=== PATIENT | male | born 1975 ===

== ENCOUNTER 2020-01-23 10:00 | Outpatient (REF) | payer MEDICAID, SELFPAY ==
--- NOTE | 2020-01-23 | US_ITS ---
EXAMINATION: US RENAL AND RENAL DOPPLER EXAM CLINICAL INFORMATION: Essential hypertension COMPARISON: None TECHNIQUE: Grayscale and color imaging of the kidneys. Grayscale color and Doppler imaging of the renal arteries and aorta. FINDINGS: The kidneys are normal in contour and symmetric in size with the right kidney measuring 13.9 x 5.8 x 6.4 cm and the left 14.1 x 6.2 x 5.8 cm in sagittal, AP and transverse dimension. Renal cortical thickness and echogenicity is normal. There is a small 3 x 4 mm stone in the midpole of the right kidney. No left renal stone is seen. No hydronephrosis or mass is seen. There is no perinephric collection. Visualized upper abdominal aorta is normal in caliber. Peak systolic velocity is normal measuring 92 cm/s. Right renal artery peak systolic velocity is 120 cm/s proximally, 180 cm/s in the midportion and 105 cm/s distally. Right renal artery to aorta ratio is normal measuring 2. Indirect evaluation of the interlobar renal arteries in the kidney demonstrate normal resistive indices measuring 0.6. The right renal vein is patent. Left renal artery peak systolic velocity measures 58 cm/s proximally, 142 cm/s in the midportion and 132 cm/s distally. Left renal artery to aorta ratio is normal measuring 1.5. Indirect evaluation of the left interlobar renal artery resistive indices in the kidney is normal measuring 0.6. The left renal vein is patent. IMPRESSION: 1. Small right renal stone. 2. No evidence of renal artery stenosis.
== END 2020-01-23 10:01 | disposition home or self-care (01) ==
LOC: HO.US 10:00
PROVIDERS: Visit Provider Nurse Practitioner Primary Care
DX: I10 Essential (primary) hypertension (principal)
CPT/HCPCS: 93975

== ENCOUNTER → 2020-04-04 08:01 | Outpatient (REF) | payer MEDICAID, SELFPAY ==
--- NOTE | 2020-04-04 08:30 | CA_ITS ---
Transthoracic Echocardiogram Patient (Last, First, Middle): Kaden DumontJeffery, Gender: Male Date of : 1975 Age: 44 Procedure Date: 04/04/2020 Procedure Type: Transthoracic Echocardiogram Location: OP Height: 187.96 cm Weight: 136.08 kg BSA: 2.58 m2 Heart Rate: bpm BP: 140 / 80 mmHg Ice Bag Assembler: CARMELO Referring MD: Vernell Jacob NP Waiter/Waitress Informal: Yvon Barbosa MD Symptoms: I10 HTN, R01.1 CARDIAC MURMUR, R06.02 SOB Study Quality: Fair/Contrast ECG Rhythm: Sinus Conclusions: - Normal study Findings Procedure Information Contrast agent, definity, is being given per protocol without apparent complications. Left Ventricle Normal left ventricular size, thickness, and systolic function. The visually estimated ejection fraction is between 60-65%. Diastolic function is normal for age. Right Ventricle Normal right ventricular cavity size and systolic function. Atria Both atria are normal in size. There is no evidence of interatrial shunt. Aortic Valve The aortic valve structure and function is likely normal. There is no aortic valve stenosis. There is no aortic valve regurgitation. Mitral Valve Normal mitral valve structure and function. There is trace mitral valve regurgitation. There is no mitral valve stenosis. Pulmonic Valve The pulmonic valve is likely normal. Tricuspid Valve Normal tricuspid valve structure. There is trace tricuspid valve regurgitation. The right ventricular systolic pressure is normal. The right ventricular systolic pressure is 17 mmHg. Normal right atrial pressure. There is no evidence of pulmonary hypertension. Great Vessels All visible segments of the aorta are normal in size. The pulmonary artery was not well visualized. Venous The inferior vena cava is normal in size and collapses greater than 50% with inspiration. Pericardium/Pleural There is no evidence of pericardial effusion. Prior Study Comparison No prior study available for comparison. Measurements 2D Linear Measurements IVSd: 1.12 0.6-0.9/0.6-1.0 cm LVIDd: 5.19 3.9-5.3/4.2-5.9 cm LVIDd Index: 2.01 2.4-3.2/2.2-3.1 cm/m2 LVIDs: 3.17 2.0-3.6 cm LVPWd: 1.12 0.7-1.1 cm Ao Root: 3.40 2.1-3.5 cm LA Diam: 3.70 2.7-3.8/3.0-4.0 cm LAIDs Index: 1.43 1.5-2.3 cm/m2 LV Mass: 281.19 67-162/88-224 g LV Mass Index: 108.99 43-95/49-115 g/m2 LVOT Diam: 2.30 3.0+(-)1.3 cm 2D Systolic Function EF 4C: 59.40 >55% EF 2C: 56.60 >55% EF BiP: 58.60 >55% Mitral Valve MV Pk E: 1.10 MV PK A: 0.69 MV Decel Time: 215.00 E/A: 1.60 E'Lateral: 10.80 E'Medial: 8.22 E/E' Med: 13.40 E/E' Lat: 10.20 PHT: 63.00 MVA PHT: 3.49 Decel Rooks: 5.10 Aortic Valve AoV Pk Chadwick: 1.55 AoV Mn Chadwick: 1.10 AoV VTI: 0.31 AoV Pk Grad: 10.00 Aov Mn Grad: 5.00 ABDULLAHI Cont.VTI: 3.49 LVOT LVOT Pk Chadwick: 1.32 LVOT Mn Chadwick: 0.85 LVOT VTI: 0.26 LVOT Pk Grad: 7.00 LVOT Mn Grad: 3.00 LVOT Diam: 2.30 LVOT Area: 4.15 Diastolic Function MV Pk E: 1.10 MV Pk A: 0.69 E/A: 1.60 E'Medial: 8.22 E/E' Med: 13.40 E' Laterial: 10.80 E/E' Lat: 10.20 Tricuspid Valve TR Pk Chadwick: 1.87 TR Pk Grad: 14.00 RA Press: 3.00 RVSP: 17.00 Great Vessels Aorta Ao Root-2D: 3.40 2.0-3.7 cm Ao Asc: 3.10 2.1-3.4 cm Ao Arch: 2.70 Updated in Other Vendor System with Status of Final Yvon Barbosa MD electronically signed on 04/05/2020 2:26:06 PM with status of Final
--- NOTE | 2020-04-04 09:30 | CA_ITS ---
Acquisition Time: 2020-04-04 09:27:45 Total Exercise Time: 00:08:24 Test Indications: SOB,HTN Medications: SEE CHART Protocol: BETINA Max HR: 153 BPM 85% of Pred: 178 BPM Max BP: 178/080 mmHG Max Work Load: 10.1 METS Exercise stress test with exercise 8 min 24 sec of Betina protocol, with moderate shortness of breath, no chest discomfort, with one ventricular cuplet near peak exercise, with normotensive response to exercise, without EKG changes meeting criteria for ischemia at peak exercise with downsloping ST lead III, the in recovery with borderline ST depression and downsloping STs Lead III, V5 and V6. His sob gradually improved to normal. Test reviewed with Dr Barbosa Call placed to ordering providers office and recommended stress echo for further evaluation. Referred By: Vernell Jacob Overread By: LISA GARCIA
== END ==
LOC: HO.CARD 08:01
PROVIDERS: PCP Nurse Practitioner Primary Care; Visit Provider Nurse Practitioner Primary Care
DX: I10 Essential (primary) hypertension (principal); R01.1 Cardiac murmur, unspecified; R06.02 Shortness of breath
CPT/HCPCS: 93017; 93306; Q9957

== ENCOUNTER → 2020-06-19 11:07 | Outpatient (REF) | payer MEDICAID, SELFPAY ==
--- NOTE | 2020-06-19 | CA_ITS ---
Acquisition Time: 2020-06-19 11:21:57 Total Exercise Time: 00:08:31 Test Indications: Dyspnea Medications: HCTZ AMLODIPINE LOSARTAN ALBUTEROL Protocol: BETINA Max HR: 151 BPM 84% of Pred: 178 BPM Max BP: 190/098 mmHG Max Work Load: 10.1 METS Exercise stress ECHO using Betina protocol, total of 8 min 31 sec. METS 10.10 and TAPHR up to 84%. EKG without any arrhythmias, no ischemic changes seen during exercise or in recovery. ECHO images taken at rest and immediately after peak exercise. Definity contrast used. Hypertensive response to exercise. Test reviewed with Dr. Barbosa. STRESS ECHO : Technique : Images were obtained at rest and immediately post exercise within 40 seconds. Definity contrast was used to enhance endocardial definition. Images were obtained in multiple views and compared side to side. Findings : At rest images were of adequate quality. LV systolic function is normal with normal wall motion. Post exercise images are of adequate quality. There is excellent augmentation of LV systolic function with no regional wall motion abnormalities. Conclusion ; Stress echo negative for ischemia Referred By: Vernell Jacob Overread By: MENA BARBOSA MD
== END ==
LOC: HO.CARD 11:07
PROVIDERS: Visit Provider Nurse Practitioner Primary Care
DX: R01.1 Cardiac murmur, unspecified (principal); R06.02 Shortness of breath
CPT/HCPCS: 93350; Q9957

== ENCOUNTER 2020-10-08 12:09 | Emergency (ER) | payer MEDICAID, SELFPAY ==
--- NOTE | ~2020-10-08 | XR_ITS ---
EXAMINATION: XR KNEE, RIGHT CLINICAL INFORMATION: Fall. Injury. COMPARISON: None TECHNIQUE: Four views of the right knee. FINDINGS: Bones and soft tissues are normal. No fracture or joint effusion. Alignment is anatomic. Joint spaces are well maintained. No abnormal soft tissue calcification. XR/XR knee RT 3V IMPRESSION: Normal right knee.
[2020-10-08 12:56] VITALS: BP 131/79; PULSE 78; RESP 18; O2SAT 97; BMI 38.5
--- NOTE | 2020-10-08 14:52 | ED.FALL ---
HPI - Fall General Chief Complaint: Fall Stated Complaint: pt fell from work Time Seen by Provider: 10/08/20 13:41 Source: patient Mode of arrival: ambulatory History of Present Illness HPI Narrative: 45-year-old male with a past medical history of hypertension presenting to the ED complaining of right knee pain s/p handlebar of pallet spot remover falling on knee while moving pallets at work [employer]. denies fall to ground, numbness, tingling, weakness, injury to other area Related Data Previous Rx's Medication Instructions Recorded acetaminophen [Tylenol Extra 500 mg PO Q6H PRN #20 tab 10/08/20 Strength] naproxen 500 mg PO BID PRN 10 Days #20 tab 10/08/20 Allergies Allergy/AdvReac Type Severity Reaction Status Date / Time No Known Allergies Allergy Verified 10/08/20 12:56 [No Known Allergies*] Review of Systems Review of Systems: Constitutional: No Fever, No Chills Musculoskeletal: + joint pain, No Myalgias, + Joint Swelling Skin: No Skin Lesions, No rash Neuro: No Weakness, No Numbness, No Paresthesias Yes all other systems are reviewed and are negative [facility] Past Medical History Attestation statement: The following information was validated with the patient. Medical History (Updated 10/08/20 @ 14:53 by GREG Maurice) HTN (hypertension) Social History Social History Advance Directives: No Advance Directives Information Provided: No Physical Exam Vital Signs: Vital Signs: Last Vital Signs Pulse 78 10/08/20 12:56 Resp 18 10/08/20 12:56 BP 131/79 10/08/20 12:56 Pulse Ox 97 10/08/20 12:56 Body Mass Index 38.5 Const: General: cooperative and healthy appearing Orientation/consciousness: patient oriented x3 Limitations: no limitations HENMT: Head: Yes normal to inspection Ears: hearing grossly normal bilaterally General nose exam: Normal external nose present Face and sinus: Yes normal facial exam Eyes: General: appearance normal, both eyes and all related structures EOM: EOMs intact bilaterally Neck: Neck: Yes normal visual inspection Resp: Effort & Inspection: normal respiratory effort Cardio: Rate: regular rate Peripheral pulses: dorsalis pedis present Skin: Rashes: no rashes Wounds: no wounds Neuro: General: patient oriented x3 Extrem: Other: right knee with notable swelling. Tender to palpation. Decreased flexion secondary to pain. Neurovascularly intact distally. Course Course Course Narrative: XR knee RT 3V IMPRESSION: Normal right knee. >> patient placed in Josh wrap and supplied with crutches in the ED MDM - Fall MDM Narrative Medical decision making narrative: 45-year-old male with a past medical history of hypertension presenting to the ED complaining of right knee pain s/p handlebar of pallet spot remover falling on knee while moving pallets at work [employer]. On exam VSS, NAD /well-appearing. Concern for fracture versus ligamental or tendon or meniscal injury. Plan: X-rays Discharge Plan Discharge Clinical Impression: Injury of knee Qualifiers: Encounter type: initial encounter Laterality: right Qualified Code(s): S89.91XA - Unspecified injury of right lower leg, initial encounter Patient Disposition: Home, Self-Care Instructions: Knee Pain (ED) Additional Instructions: your x-rays are unremarkable. Wear Josh wrap at home as needed for comfort /debility. Ice. Elevate, and rest. Naproxen as an anti-inflammatory/ pain medication, take with food. In addition take Tylenol. Follow up with her primary care doctor, as well as Orthopedics as needed. If pain persists or worsens, becomes unbearable, or you develop weakness or numbness return to the ED. You may need an MRI in the future nedra radiograf?as son normales. Use la envoltura Josh en casa seg?n sea necesario para mayor comodidad / debilidad. Hielo. Elevar y descansar. El naproxeno ingrid medicamento antiinflamatorio / analg?sico, t?cartagena con las comidas. Adem?s, tome Tylenol. Eleazar un seguimiento con macias m?dico de atenci?n primaria, as? ingrid con ortopedia seg?n sea necesario. Si el dolor persiste o empeora, se vuelve insoportable o si desarrolla debilidad o entumecimiento, regrese al servicio de urgencias. Es posible que necesite ernst resonancia magn?alisa en el futuro Prescriptions: New acetaminophen [Tylenol Extra Strength] 500 mg tablet 500 mg PO Q6H PRN (Reason: pain or fever) Qty: 20 RF: 0 naproxen 500 mg tablet 500 mg PO BID PRN (Reason: pain) 10 Days Qty: 20 RF: 0 Referrals: Estela Clark PA-C [Physician Practice Lead] - 10 days Stand Alone Forms: Work/School Release Interventions: ED Discharge Assessment Last Done: 10/08/20 15:13 Discharge Date/Time: 10/08/20 15:14 Print Language: Nepali
[2020-10-08] MEDS: Ketorolac Tromethamine 30 MG/ML VIAL IM (14:53)
== END 2020-10-08 15:14 | disposition home or self-care (01) ==
PROVIDERS: Emergency Provider Emergency Medicine Emergency Medical Services; PCP Nurse Practitioner Primary Care
DX: S89.91XA Unspecified injury of right lower leg, initial encounter (principal); W20.8XXA Other cause of strike by thrown, projected or falling object, initial encounter; Y93.89 Activity, other specified; Y92.89 Other specified places as the place of occurrence of the external cause; Y99.0 Civilian activity done for income or pay
CPT/HCPCS: 73562; 99283; J1885

== ENCOUNTER → 2020-11-05 13:58 | Outpatient (BNVA) | payer MEDICAID, SELFPAY | PROVIDERS: PCP Nurse Practitioner Primary Care; Referring Provider Nurse Practitioner Primary Care; Visit Provider Internal Medicine Cardiovascular Disease | DX: I10 Essential (primary) hypertension (principal); R01.1 Cardiac murmur, unspecified; G47.10 Hypersomnia, unspecified; Z79.899 Other long term (current) drug therapy | CPT/HCPCS: 93005; 99202 ==

== ENCOUNTER 2020-11-21 11:01 | Outpatient (REF) | payer MEDICAID, SELFPAY ==
--- NOTE | ~2020-11-21 | US_ITS ---
EXAMINATION: US RETROPERITONEAL LIMITED (RENAL ONLY) ULTRASOUND RENAL DOPPLER CLINICAL INFORMATION: Hypertension. COMPARISON: None TECHNIQUE: Transabdominal ultrasound imaging of kidneys is performed. FINDINGS: RIGHT KIDNEY: 14.6 x 5.7 x 6.2 cm (SAG x AP x TRV). The kidney is normal in size, contour, and echogenicity. Renal cortical thickness is normal. There is an echogenic stone midpole measuring 0.6 x 0.4 x 0.6 cm. There is a prominent anechoic area in the upper pole with tiny calcifications. No additional echogenic stone seen. There is no caliectasis or hydronephrosis. LEFT KIDNEY: 14.3 x 6.3 x 5.0 cm (SAG x AP x TRV). The kidney is normal in size, contour, and echogenicity. Renal cortical thickness is normal. There is a prominent anechoic area in the upper pole with tiny calcification question complex cyst or calcification. No calculi or focal parenchymal lesions. No hydronephrosis. On renal Doppler exam, Right kidney: The proximal right renal artery measures 177 cm/s, mid segment measures to 29 cm/s, distal segment measures 114 cm/s. Average resistive index is less than 0.7 cm. There is no suggestion of renal artery stenosis. The renal vein is patent. Left kidney: The renal artery velocity proximal segment measures 137 cm/s, mid segment measures 205 cm/s, distal segment measures 78.2 cm. Renal aortic ratio measures less than 0.7 cm. There is no suggestion for renal artery stenosis. The renal vein is patent. US/US renal BI IMPRESSION: There is no renal artery stenosis in either side. There is a nonobstructive echogenic stone midpole right kidney. Small anechoic cyst with peripheral calcification upper pole left kidney.
--- NOTE | ~2020-11-21 | US_ITS ---
EXAMINATION: US RETROPERITONEAL LIMITED (RENAL ONLY) ULTRASOUND RENAL DOPPLER CLINICAL INFORMATION: Hypertension. COMPARISON: None TECHNIQUE: Transabdominal ultrasound imaging of kidneys is performed. FINDINGS: RIGHT KIDNEY: 14.6 x 5.7 x 6.2 cm (SAG x AP x TRV). The kidney is normal in size, contour, and echogenicity. Renal cortical thickness is normal. There is an echogenic stone midpole measuring 0.6 x 0.4 x 0.6 cm. There is a prominent anechoic area in the upper pole with tiny calcifications. No additional echogenic stone seen. There is no caliectasis or hydronephrosis. LEFT KIDNEY: 14.3 x 6.3 x 5.0 cm (SAG x AP x TRV). The kidney is normal in size, contour, and echogenicity. Renal cortical thickness is normal. There is a prominent anechoic area in the upper pole with tiny calcification question complex cyst or calcification. No calculi or focal parenchymal lesions. No hydronephrosis. On renal Doppler exam, Right kidney: The proximal right renal artery measures 177 cm/s, mid segment measures to 29 cm/s, distal segment measures 114 cm/s. Average resistive index is less than 0.7 cm. There is no suggestion of renal artery stenosis. The renal vein is patent. Left kidney: The renal artery velocity proximal segment measures 137 cm/s, mid segment measures 205 cm/s, distal segment measures 78.2 cm. Renal aortic ratio measures less than 0.7 cm. There is no suggestion for renal artery stenosis. The renal vein is patent. US/US renal doppler IMPRESSION: There is no renal artery stenosis in either side. There is a nonobstructive echogenic stone midpole right kidney. Small anechoic cyst with peripheral calcification upper pole left kidney.
== END 2020-11-21 11:02 | disposition home or self-care (01) ==
LOC: HO.US 11:01
PROVIDERS: Visit Provider Internal Medicine Cardiovascular Disease
DX: I10 Essential (primary) hypertension (principal)
CPT/HCPCS: 76775; 93975; 95806

== ENCOUNTER → 2020-11-21 16:04 | Outpatient (REF) | payer MEDICAID, SELFPAY | LOC: HO.SL 16:04 | PROVIDERS: PCP Nurse Practitioner Primary Care; Visit Provider Internal Medicine Cardiovascular Disease | DX: G47.10 Hypersomnia, unspecified (principal); I10 Essential (primary) hypertension | CPT/HCPCS: 95806 ==

== ENCOUNTER 2021-01-20 14:46 | Outpatient (REF) | payer MEDICAID, SELFPAY ==
[2021-01-20 15:22] LABS: COVID-19 Test Negative (Negative)
== END 2021-01-20 14:47 | disposition home or self-care (01) ==
LOC: HO.LAB 14:46
PROVIDERS: PCP Nurse Practitioner Primary Care; Visit Provider Internal Medicine
DX: Z20.822 Contact with and (suspected) exposure to COVID-19 (principal)
CPT/HCPCS: 36415; 87635; C9803

== ENCOUNTER 2021-03-24 15:00 | Outpatient (REF) | payer MEDICAID, SELFPAY ==
[2021-03-24 16:00] LABS: COVID-19 Test Negative (Negative); IDNOW Serial# 16C4AD1C
== END 2021-03-24 15:01 | disposition home or self-care (01) ==
LOC: HO.LAB 15:00
PROVIDERS: Visit Provider Internal Medicine
DX: Z20.822 Contact with and (suspected) exposure to COVID-19 (principal)
CPT/HCPCS: 36415; 87635; C9803

== ENCOUNTER 2021-07-29 15:29 | Emergency (ER) | payer MEDICAID, SELFPAY ==
--- NOTE | ~2021-07-29 | XR_ITS ---
EXAMINATION: XR SHOULDER, RIGHT CLINICAL INFORMATION: Pain COMPARISON: None TECHNIQUE: Right shoulder is imaged in 4 views. FINDINGS: There is bulky calcific tendinosis adjacent to the greater tuberosity in region of distal supraspinatus and infraspinatus tendons. There is no fracture or dislocation or destructive process. Glenohumeral joint appears normal. The acromioclavicular alignment is normal. Right lung apex shows no pneumothorax or pleural reaction. XR/XR shoulder RT min 2V IMPRESSION: Bulky calcific tendinosis right rotator cuff.
[2021-07-29 15:40] VITALS: BP 150/106; PULSE 79; RESP 20; TEMP 36.1; O2SAT 97; BMI 37.5
[2021-07-29] MEDS: Ibuprofen 600 MG TABLET PO (17:34)
--- NOTE | 2021-07-29 17:56 | ED.EXTPRO ---
HPI - Extremity Problem General Chief complaint: Extremity Problem Stated complaint: right shoulder pain Time Seen by Provider: 07/29/21 17:55 Source: patient Mode of arrival: ambulatory Limitations: no limitations History of Present Illness HPI Narrative: 46-year-old male presents to the ER with acute onset of right shoulder pain that started yesterday after he was lifting bread trays above his head. He states when he woke up this morning the pain was significantly increased and he was unable to move his shoulder. He states the pain is worse when you touch it and when he tries to lift it up away from the body. He denies any fall or specific injury. He denies any pops or snaps. He has no numbness or tingling in the hand or arm. No elbow or wrist injury. MD Complaint: joint pain Onset (ago): day(s) (1) Pain Consistency: constant Location: right and upper extremity Severity scale (1-10): 8 Quality: aching and sharp Radiation: none Relieving factors: immobilization Exacerbating factors: range of motion and palpation Associated symptoms: denies other symptoms Related Data Home Medications Medication Instructions Recorded Confirmed amlodipine 10 mg tablet 10 mg PO DAILY 11/05/20 11/05/20 Previous Rx's Medication Instructions Recorded acetaminophen 500 mg tablet 500 mg PO Q6H PRN #20 tab 10/08/20 (Tylenol Extra Strength) naproxen 500 mg tablet 500 mg PO BID PRN 10 Days #20 tab 10/08/20 losartan 100 1 tab PO DAILY #60 tab 06/13/21 mg-hydrochlorothiazide 25 mg tablet hydrocodone 5 mg-acetaminophen 325 1 tab PO Q8H PRN #8 tab 07/29/21 mg tablet ibuprofen 800 mg tablet 800 mg PO Q8H PRN #20 tab 07/29/21 Allergies Allergy/AdvReac Type Severity Reaction Status Date / Time No Known Allergies Allergy Verified 10/08/20 12:56 [No Known Allergies*] Review of Systems Review of Systems: Constitutional: No Fever, No Chills Cardiovascular: No Chest Pain, No SOB Gastrointestinal: No Nausea, No Vomiting, No abdominal Pain Musculoskeletal: + joint pain, No Myalgias Skin: No Skin Lesions, No rash Neuro: No Weakness, No Numbness Heme/Lymph: No Bruising, No Lymphadenopathy PMFSH Past Medical History Medical History HTN (hypertension) Uncontrolled hypertension Surgical History Hx of hand surgery Family History Family History Father HTN (hypertension) Mother HTN (hypertension) Social History Social History Patient Tobacco Use Status: Never used Tobacco Advance Directives: No Advance Directives Information Provided: No Physical Exam Vital Signs: Vital Signs: Last Vital Signs Temp 96.9 F 07/29/21 15:40 Pulse 79 07/29/21 15:40 Resp 20 07/29/21 15:40 BP 150/106 H 07/29/21 15:40 Pulse Ox 97 07/29/21 15:40 BMI result Body Mass Index 37.5 Appearance: Alert. Oriented X3. No acute distress. HEENT: normal inspection CVS: Normal heart rate and rhythm. Pulses normal. Respiratory: No respiratory distress. Skin: Skin warm and dry. Normal skin color. Normal skin turgor. No rashes. Extremities: Right shoulder and arm held in adduction. Tenderness along the anterior lateral aspect of the shoulder with pain on passive and active adduction. Unable to abduct past 90 degrees. Normal range of motion of the elbow and wrist. Neurovascularly intact distally. Neuro: Oriented X 3. No motor deficit. No sensory deficit. Course Course Course Narrative: 46-year-old male presents to the ER with nontraumatic right shoulder pain since yesterday. He is tender throughout the anterior lateral and posterior shoulder with limited range of motion, pain with abduction and palpation. X-ray showing bulky calcific tendinitis. Will place an sling for comfort, start him on NSAIDs and pain control. Would benefit from physical therapy, he will follow-up with his PCP. He is stable for discharge home with outpatient follow-up. Work note provided per request Critical Care Time Critical Care Time Critical Care Time: No Discharge Plan Discharge Clinical Impression: Calcific tendonitis of right shoulder Patient Disposition: Home, Self-Care Instructions: Calcific Tendinitis (ED) Additional Instructions: Your x-ray today showed calcific tendonitis. Treatment is rest, ice/heat, anti-inflammatory medications, and physical therapy You can wear the sling as needed for immobilization and support but do not wear it any longer than 48 hours as this can cause a frozen shoulder and decreased mobility. Take the prescribed medications as directed. They were sent to the [facility] on [facility], they are open to 21:00 tonight Follow up with your doctor to facilitate referral to physical therapy Follow-up with orthopedics for evaluation of possible steroid injections into the shoulder. Name and number below Prescriptions: New ibuprofen 800 mg tablet 800 mg PO Q8H PRN (Reason: pain) Qty: 20 0RF hydrocodone-acetaminophen 5-325 mg tablet 1 tab PO Q8H PRN (Reason: severe pain (scale score 7-10)) Qty: 8 0RF No Action losartan-hydrochlorothiazide 100-25 mg tablet 1 tab PO DAILY Qty: 60 0RF Rx Instructions: Must attend 08/04/21 acetaminophen [Tylenol Extra Strength] 500 mg tablet 500 mg PO Q6H PRN (Reason: pain or fever) Qty: 20 0RF naproxen 500 mg tablet 500 mg PO BID PRN (Reason: pain) 10 Days Qty: 20 0RF amlodipine 10 mg tablet 10 mg PO DAILY 0RF Referrals: [facility] [Primary Care Provider] - 3 days (Calcific tendinitis) Ja Plummer PA-C [Physician [employer] Worker] - 1 week (Calcific tendinitis of the right shoulder) Stand Alone Forms: Work/School Release Print Language: Portuguese
== END 2021-07-29 18:26 | disposition home or self-care (01) ==
LOC: HO.ED 18:11
PROVIDERS: Emergency Provider Emergency Medicine Emergency Medical Services
DX: M75.31 Calcific tendinitis of right shoulder (principal); M25.511 Pain in right shoulder
CPT/HCPCS: 73030; 99283; 99284

== ENCOUNTER → 2021-08-04 15:09 | Outpatient (BNVA) | payer MEDICAID, SELFPAY | PROVIDERS: PCP Nurse Practitioner Primary Care; Referring Provider Nurse Practitioner Primary Care; Visit Provider Internal Medicine Cardiovascular Disease | DX: I10 Essential (primary) hypertension (principal); G47.30 Sleep apnea, unspecified; E66.9 Obesity, unspecified; Z68.37 Body mass index [BMI] 37.0-37.9, adult; Z79.899 Other long term (current) drug therapy | CPT/HCPCS: 99212 ==

== ENCOUNTER → 2021-08-18 08:47 | Outpatient (BNVA) | payer MEDICAID, SELFPAY | PROVIDERS: PCP Nurse Practitioner Primary Care; Visit Provider Physician Assistant | DX: M75.80 Other shoulder lesions, unspecified shoulder (principal) | CPT/HCPCS: 99202 ==

== ENCOUNTER 2022-06-08 15:10 | Emergency (ER) | payer MEDICAID, SELFPAY ==
--- NOTE | ~2022-06-08 | XR_ITS ---
EXAMINATION: XR RIBS, RIGHT CLINICAL INFORMATION: Status post fall with right hip pain. COMPARISON: None TECHNIQUE: 3 views of the right ribs were obtained. FINDINGS: Lungs are clear. No consolidation, pneumothorax, or pleural effusion. The cardiomediastinal silhouette and pulmonary vasculature are normal. Osseous structures are unremarkable. Ribs are intact. No fractures are identified. XR/XR ribs RT min 3V w CXR1V IMPRESSION: Unremarkable chest examination. Unremarkable right rib exam.
--- NOTE | 2022-06-08 15:20 | ED_ITS ---
HPI - Fall General Chief Complaint: Back Pain/Injury <GREG Schwartz - Last Filed: 06/08/22 15:25> Stated Complaint: fell lower back pain <GREG Schwartz - Last Filed: 06/08/22 15:25> Time Seen by Provider: 06/08/22 17:13 <GREG Schwartz - Last Filed: 06/08/22 15:25> Source: patient <GREG Peres - Last Filed: 06/08/22 17:30> Mode of arrival: ambulatory <GREG Peres - Last Filed: 06/08/22 17:30> Limitations: language barrier (Togolese-speaking) <GREG Peres - Last Filed: 06/08/22 17:30> History of Present Illness HPI Narrative: 46-year-old male who is Togolese-speaking presenting to the ER with complaints of right posterior rib cage pain/back pain after he had a slip and fall a few hours prior to arrival when he was walking out of work due to the floor was wet. He denies head injury loss of consciousness or being on any bl ood thinners or any symptoms prior to the fall or any prolonged down time. He denies any other injuries complaints concerns or injuries at this time. <GREG Peres - Last Filed: 06/08/22 17:30> MD complaint: fall <GREG Peres - Last Filed: 06/08/22 17:30> Onset (ago): hour(s) (Prior to arrival) <GREG Peres - Last Filed: 06/08/22 17:30> Fall from: standing <GREG Peres - Last Filed: 06/08/22 17:30> Fall witnessed: no <GREG Peres - Last Filed: 06/08/22 17:30> Place fall occurred: work and street <GREG Peres - Last Filed: 06/08/22 17:30> Loss of consciousness: none <GREG Peres - Last Filed: 06/08/22 17:30> Prolonged down time: no <GREG Peres - Last Filed: 06/08/22 17:30> Symptoms prior to fall: none <GREG Peres - Last Filed: 06/08/22 17:30> Context: tripped/slipped <GREG Peres Last Filed: 06/08/22 17:30> Location of injury: chest (Right ribcage pain) <GREG Peres Last Filed: 06/08/22 17:30> Severity: mild <GREG Peres Last Filed: 06/08/22 17:30> Quality: aching <GREG Peres Last Filed: 06/08/22 17:30> Associated symptoms (after fall): denies <GREG Peres Last Filed: 06/08/22 17:30> Related Data Home Medications: Previous Rx's Medication Instructions Recorded acetaminophen 500 mg tablet 500 mg PO Q6H PRN pain or fever 10/08/20 (Tylenol Extra Strength) #20 tabs hydrocodone 5 mg-acetaminophen 325 1 tab PO Q8H PRN severe pain 07/29/21 mg tablet (scale score 7-10) #8 tabs ibuprofen 800 mg tablet 800 mg PO Q8H PRN pain #20 tabs 07/29/21 losartan 100 1 tab PO DAILY 90 days #90 tabs 08/05/21 mg-hydrochlorothiazide 25 mg tablet amlodipine 5 mg tablet 5 mg PO DAILY #90 tabs 02/19/22 acetaminophen 300 mg-codeine 30 mg 1 tab PO Q8H PRN pain #14 tabs 06/08/22 tablet cyclobenzaprine 10 mg tablet 10 mg PO Q8H #14 tabs 06/08/22 <GREG Schwartz Last Filed: 06/08/22 15:25> Allergies/Adverse Reactions: Allergies Allergy/AdvReac Type Severity Reaction Status Date / Time No Known Allergies Allergy Verified 08/18/21 09:05 [No Known Allergies*] <GREG Schwartz Last Filed: 06/08/22 15:25> Review of Systems Review of Systems: Constitutional : No trauma, No Weight loss, No Fever, No Chills, ENT/Mouth : No Hearing loss, No Ear Pain, No Nasal Congestion, No Sinus Pain, No Hoarseness, No sore throat, No Rhinorrhea, No Swallowing Difficulty Cardiovascular : No Chest Pain, No SOB Respiratory : No Cough, No Dyspnea Gastrointestinal : No Nausea, No Vomiting, No Diarrhea, No abdominal Pain, No Hematochezia, No Melena Genitourinary : No Dysuria, No Urinary Frequency, No Hematuria, No Urinary or Bowel Incontinence/retention Musculoskeletal : + Right rib/Back pain, No neck pain, No joint stiffness, No joint swelling Skin : No Skin Lesions, No rash or signs of infection Neuro : No Weakness, No radiation, No Numbness, No Paresthesias, No headache, no loss of bowel or bladder incontinence, no saddle anesthesia Denies history of IV drug usage. <GREG Peres - Last Filed: 06/08/22 17:30> Yes all other systems are reviewed and are negative <GREG Peres - Last Filed: 06/08/22 17:30> [facility] Past Medical History Attestation statement: The following information was validated with the patient. <GREG Peres - Last Filed: 06/08/22 17:30> Source: old records reviewed and nursing notes reviewed <GREG Peres - Last Filed: 06/08/22 17:30> Medical History: Medical History HTN (hypertension) Uncontrolled hypertension <GREG Schwartz - Last Filed: 06/08/22 15:25> Surgical History: Surgical History Hx of hand surgery <GREG Schwartz - Last Filed: 06/08/22 15:25> Family History Family History: Family History Father HTN (hypertension) Mother HTN (hypertension) <GREG Schwartz - Last Filed: 06/08/22 15:25> Social History Social History: Social History Patient Tobacco Use Status: Never used Tobacco Advance Directives: No Advance Directives Information Provided: Yes <GREG Schwartz - Last Filed: 06/08/22 15:25> Physical Exam Vital Signs: Vital Signs: Last Vital Signs Temp 98.6 F 06/08/22 15:21 Pulse 92 06/08/22 15:21 Resp 18 06/08/22 15:21 BP 113/72 06/08/22 15:21 Pulse Ox 97 06/08/22 15:21 O2 Del Method 06/08/22 15:21 BMI result Body Mass Index 37.2 <GREG Schwartz - Last Filed: 06/08/22 15:25> Vital Signs: Last Vital Signs Temp 98.6 F 06/08/22 15:21 Pulse 92 06/08/22 15:21 Resp 18 06/08/22 15:21 BP 113/72 06/08/22 15:21 Pulse Ox 97 06/08/22 15:21 O2 Del Method 06/08/22 15:21 BMI result Body Mass Index 37.2 vital signs have been reviewed as normal and appeared to be correct. Blood pressure normal. Heart rate normal. Respiration rate normal. Temperature normal. Oxygen saturation normal. <GREG Peres - Last Filed: 06/08/22 17:30> Appearance: Alert. Oriented X3. No acute distress. Head: Normal external exam. Normocephalic. Atraumatic. No Catherine signs noted. No raccoon eyes noted Eyes: PERRLA. EOMI. Conjunctiva and sclera normal. Eyelids normal. ENT: EAC normal. TM's Normal. Pharynx normal. Uvula midline. Moist mucous membranes. No trismus noted. No drooling noted. No muffled voice noted. Neck: Normal inspection. Neck supple. FROM. No adenopathy. Thyroid Normal. No meningeal signs. No neck mass noted. CVS: Normal heart rate and rhythm. Heart sound normal. No murmurs noted. Pulses normal throughout. Respiratory: No respiratory distress. Painless inspiration. Breath sounds normal. No wheezes/rales/rhonchi noted. Chest posterior right-sided rib cage pain. No obvious signs of trauma. Not consistent with flail chest. No accessory muscle usage noted or decreased air movement noted. Abdomen: Soft and nontender. Bowel sounds normal in all 4 quadrants. No distention noted. No organomegaly noted. No visible injury noted. Back: No CVA tenderness. Full range of motion noted. No obvious deformities, or edema. Mild right para-spinal muscular tenderness from thoracic to rib cage region.. Full ROM in back and lower extremities. 5/5 strength hip extension/flexion, abduction, adduction. Straight leg raise test negative on right; Straight leg raise test negative on left; Reflexes normal ankle and knee bilaterally; EHL motor strength normal bilaterally. No rashes/lesion/induration/fluctuance or signs infection noted. Skin: Skin warm and dry. Normal skin color. Normal skin turgor. No rashes/lesions/lacerations noted. Extremities: No lower extremity edema. Extremities exhibit normal range of motion. Extremities nontender. Neuro: Oriented X 3. No motor deficit. No sensory deficit. Reflexes normal. Patient has a normal steady gait. <GREG Peres - Last Filed: 06/08/22 17:30> Course Course Course Narrative: RME - 46 yo Togolese speaking male presents to the ER for evaluation of lower back pain after a slip and fall a few hours. He fell onto his back, did not hit his head. Not on blood thinners. He is c/o right sided rib pain on the back. No ecchymosis or point tenderness on exam. No midline tenderness of the lumbar spine. Lungs are clear. VSS. Plan: will get right sided rib x-rays, low suspicion for fractures. <GREG Schwartz - Last Filed: 06/08/22 15:25> Reevaluation(s) Reevaluation #1: X-ray imaging of right ribs and PA chest negative for any acute processes. Patient most likely muscular skeletal pain. He denies head injury loss of consciousness. No prolonged down time. No symptoms prior to the fall. Therefore at this time will DC home with symptomatic treatment for muscular skeletal pain and instructions return if any new or worsening symptoms follow up with primary care provider. Patient understands agrees with this plan. <GREG Peres - Last Filed: 06/08/22 17:30> Time: 17:29 <GREG Peres - Last Filed: 06/08/22 17:30> Medical Decision Making Independent Interpretation I performed an independent interpretation of an: Plain X-Ray <GREG Peres Last Filed: 06/08/22 17:30> Interpretation: I reviewed the x-ray results and discussed with patient. <GREG Peres Last Filed: 06/08/22 17:30> Radiology Impression Discussion of test interpretation with radiology: I have reviewed the radiologist's reading. <GREG Peres - Last Filed: 06/08/22 17:30> Radiologist Impression: [address] [address] XRay Report Signed Patient: Jeffery Luo MR#: [id number] : 1975 Acct:[id number] Age/Sex: 46 / M ADM Date: 06/08/22 Loc: HO.ED Attending Dr: Ordering Physician: Arti Minaya Date of Service: 06/08/22 Procedure(s): XR ribs RT min 3V w CXR1V Accession Number(s): [id number] cc: Arti Minaya~ EXAMINATION: XR RIBS, RIGHT CLINICAL INFORMATION: Status post fall with right hip pain. COMPARISON: None TECHNIQUE: 3 views of the right ribs were obtained. FINDINGS: Lungs are clear. No consolidation, pneumothorax, or pleural effusion. The cardiomediastinal silhouette and pulmonary vasculature are normal. Osseous structures are unremarkable. Ribs are intact. No fractures are identified. XR/XR ribs RT min 3V w CXR1V IMPRESSION: Unremarkable chest examination. ? Unremarkable right rib exam. <GREG Peres - Last Filed: 06/08/22 17:30> Discharge Plan Discharge Clinical Impression: Fall, Pain in rib <GREG Schwartz - Last Filed: 06/08/22 15:25> Patient Disposition: Home, Self-Care <GREG Schwartz - Last Filed: 06/08/22 15:25> Instructions: Rib Contusion (ED) <GREG Schwartz - Last Filed: 06/08/22 15:25> Prescriptions: New acetaminophen-codeine 300-30 mg tablet 1 tab PO Q8H PRN (Reason: pain) Qty: 14 0RF cyclobenzaprine 10 mg tablet 10 mg PO Q8H Qty: 14 0RF No Action losartan-hydrochlorothiazide 100-25 mg tablet 1 tab PO DAILY 90 Days Qty: 90 3RF amlodipine 5 mg tablet 5 mg PO DAILY Qty: 90 3RF acetaminophen [Tylenol Extra Strength] 500 mg tablet 500 mg PO Q6H PRN (Reason: pain or fever) Qty: 20 0RF ibuprofen 800 mg tablet 800 mg PO Q8H PRN (Reason: pain) Qty: 20 0RF hydrocodone-acetaminophen 5-325 mg tablet 1 tab PO Q8H PRN (Reason: severe pain (scale score 7-10)) Qty: 8 0RF <GREG Schwartz - Last Filed: 06/08/22 15:25> Referrals: [facility] [Primary Care Provider] - 2 days <GREG Schwartz - Last Filed: 06/08/22 15:25> Stand Alone Forms: Work/School Release <GREG Schwartz - Last Filed: 06/08/22 15:25> Print Language: Togolese <GREG Schwartz - Last Filed: 06/08/22 15:25>
[2022-06-08 15:21] VITALS: BP 113/72; PULSE 92; RESP 18; TEMP 37; O2SAT 97; BMI 37.2
== END 2022-06-08 17:34 | disposition home or self-care (01) ==
PROVIDERS: Emergency Provider Student in an Organized Health Care Education/Training Program
DX: Z04.2 Encounter for examination and observation following work accident (principal); R07.81 Pleurodynia; I10 Essential (primary) hypertension
CPT/HCPCS: 71101; 99282; 99283

== ENCOUNTER 2023-01-13 18:57 | Outpatient (REF) | payer MEDICAID, SELFPAY ==
[2023-01-13 19:49] LABS: Influenza A PCR NEGATIVE (Negative); Influenza B PCR NEGATIVE (Negative); Resp Syncy Virus RNA Qual PCR NEGATIVE (Negative); SARS COV2 PCR INHOUSE NEGATIVE (Negative)
== END 2023-01-13 18:58 | disposition home or self-care (01) ==
LOC: HO.HHCLNP 18:57
PROVIDERS: Visit Provider Internal Medicine Geriatric Medicine
DX: J06.9 Acute upper respiratory infection, unspecified (principal); R06.2 Wheezing
CPT/HCPCS: 0241U

== ENCOUNTER 2023-07-24 08:11 | Outpatient (REF) | payer MEDICAID, SELFPAY ==
[2023-07-24 08:20] LABS: MANUAL DIFF FLAG NO
[2023-07-24 08:53] LABS: Basophils Absolute Auto 0.1 X10*3/uL (0.0-0.2); Eosinophils Absolute Auto 0.4 X10*3/uL (0.0-0.4); Eosinophils Percent Auto 4.1 % (0-4); Hematocrit 44.9 % (42.0-52.0); Hemoglobin 15.6 g/dl (14.0-18.0); Imm Gran Abs Auto 0.07 X10*3/uL (0.00-0.03); Imm Gran Pct Auto 0.7 % (0.0-0.4); Lymphocytes Absolute Auto 2.6 X10*3/uL (1.2-4.9); Lymphocytes Percent Auto 24.5 % (20-40); Mean Corpuscular HGB Conc 34.7 g/dl (31.0-36.0); Mean Corpuscular Hemoglobin 29.5 pg (27.0-33.0); Mean Platelet Volume 10.1 fL (9.4-12.4); Monocytes Absolute Auto 0.7 X10*3/uL (0.1-1.2); Monocytes Percent Auto 6.7 % (2-11); Neutrophils Absolute Auto 6.7 x10*3/uL (2.0-8.3); Platelet Count 315 X10*3/uL (160-400); Red Blood Count 5.28 X10*6/uL (4.60-5.80); Red Cell Distribution Width 12.8 % (11.0-16.0); White Blood Count 10.6 X10*3/uL (4.8-10.8)
[2023-07-24 09:34] LABS: Estimated Average Glucose 123 mg/dL; Hemoglobin A1c % 5.9 % (<6.0)
[2023-07-24 09:41] LABS: Alanine Aminotransferase 24 U/L (0-40); Albumin Level 4.2 g/dL (3.5-5.0); Alkaline Phosphatase 65 U/L (39-117); Anion Gap 12 (12-20); Aspartate Amino Transferase 18 U/L (5-37); Bilirubin Total 0.6 mg/dL (0.0-1.0); Blood Urea Nitrogen 18 mg/dL (9-16); Calcium 9.9 mg/dL (8.4-10.2); Carbon Dioxide 32 mmol/L (22-29); Chloride 102 mmol/L (96-108); Cholesterol 162 mg/dL (<200); Estimated Glomerular Filt Rate > 60; Glucose Random 113 mg/dL (60-115); HDL Cholesterol 37 mg/dL (>40); LDL Cholesterol Calculated 72 mg/dL (<100); Potassium 4.5 mmol/L (3.3-5.1); Sodium 141 mmol/L (135-145); Total Protein 7.8 g/dL (6.5-8.0); Triglycerides 268 mg/dL (<150)
[2023-07-24 09:48] LABS: Prostate Specific Antigen 0.31 ng/mL (<0.05-4.0)
[2023-07-24 09:58] LABS: Insulin 54 uU/mL (2-29); TSH reflex Free T4 0.85 uIU/mL (0.32-4.0); Vitamin D 25-OH Total 13.9 ng/mL (>30)
== END 2023-07-24 08:12 | disposition home or self-care (01) ==
LOC: HO.LAB 08:11
PROVIDERS: PCP Family Medicine; Visit Provider Family Medicine
DX: I10 Essential (primary) hypertension (principal); E66.01 Morbid (severe) obesity due to excess calories; Z68.41 Body mass index [BMI] 40.0-44.9, adult; Z13.29 Encounter for screening for other suspected endocrine disorder; Z13.228 Encounter for screening for other metabolic disorders; Z13.0 Encounter for screening for diseases of the blood and blood-forming organs and certain disorders involving the immune mechanism; Z12.5 Encounter for screening for malignant neoplasm of prostate
CPT/HCPCS: 36415; 80053; 80061; 82306; 83036; 83525; 84153; 84443; 85025

== ENCOUNTER 2023-08-06 13:33 | Outpatient (AMB) | payer MEDICAID, SELFPAY ==
[2023-08-06 13:36] VITALS: BP 124/80; PULSE 84; BMI 38.8
--- NOTE | 2023-08-06 13:36 | A.OFFVIS_ITS ---
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 His last prior visit to our office was 07/15/2021. Today he reports has been doing generally well since his last visit. He denies having any chest discomfort at rest or with activity. No concerning shortness of breath. No palpitations, lightheadedness, presyncope, syncope, falls. No PND, orthopnea or edema. Does take naps in the daytime. He was previously diagnosed with sleep apnea but states that he a mask. 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 He is taking his medications as directed. Since last visit his amlodipine was increased and losartan/hydrochlorothiazide was added. [facility] Medical History (Updated 08/06/23 @ 14:46 by GYPSY Perea) Uncontrolled hypertension HTN (hypertension) Surgical History Hx of hand surgery Family History Father HTN (hypertension) Mother HTN (hypertension) Social History Patient Tobacco Use Status: Never used Tobacco Review of Systems Const All systems reviewed & are unremarkable except as noted in HPI and below ENT Denies dizziness Card Denies chest pain, Denies chest pain at rest, Denies chest pain with activity, Denies rapid heart rate, Denies pedal edema, Denies edema, Denies leg edema, Denies lightheadedness, Denies palpitations, Denies dyspnea, Denies dyspnea on exertion and Denies orthopnea Resp Denies cough, Denies dyspnea and Denies dyspnea on exertion GI Denies hematochezia and Denies change in stool character Musc Denies abnormal gait, Denies limited range of motion, Denies muscle cramps, Denies muscle weakness, Denies numbness, Denies radiating pain into limb, Denies stiffness and Denies tingling Neuro Denies abnormal gait, Denies dizziness, Denies numbness and Denies tingling Endo Denies palpitations Physical Exam Vital Signs: Last Vital Signs Pulse 84 08/06/23 13:36 BP 124/80 08/06/23 13:36 BMI result Body Mass Index 38.8 Const Other: obese General: cooperative, healthy appearing, comfortable and no acute distress Orientation/consciousness: patient oriented x3 Neck Neck: Yes normal visual inspection Resp Effort & Inspection: normal respiratory effort Auscultation: clear to auscultation bilaterally, no crackles, no rales, no rhonchi and no wheezes Cardio Jugular venous distension: no JVD Rate: regular rate Rhythm: regular rhythm Heart sounds: S1 normal heart sound present, S2 normal heart sound present, no murmurs and no rubs Neuro General: patient oriented x3 Extrem General: Yes normal to inspection and No no pedal edema Psych Appearance: grossly normal Mental Status: mental status grossly normal Speech and movement: Normal speech and movement present Office Procedures EKG Details: Today, read by me, normal sinus rhythm, incomplete right bundle branch block, QTC 463 milliseconds, rate 84 [id number], Complete Assessment & Plan Assessment & Plan (1) HTN (hypertension): Code(s): I10 - Essential (primary) hypertension Category: Medical Plan: History of hypertension, previously uncontrolled. He is currently on amlodipine 10 mg daily, losartan 100/hydrochlorothiazide 25 mg daily. Labs done 07/24/2023 showed creatinine 0.9, potassium 4.5. Blood pressure today 124/80. Last echocardiogram done 04/04/2020 showed normal study. A stress echocardiogram done 06/19/2020 showed no echo evidence of ischemia. He denies any anginal sounding symptoms. He does have known sleep apnea which is not being treated. Will refer him to pulmonology for evaluation and treatment. Benefits a weight loss, low-salt diet, increasing physical activity reviewed with him. Cardiology follow-up in 1 year, sooner if needed. (2) Obstructive sleep apnea: Code(s): G47.33 - Obstructive sleep apnea (adult) (pediatric) Category: Medical Plan: Home sleep study done 11/28/2020 shows moderately severe obstructive sleep apnea. Patient states that he never had further evaluation or treatment of this. Will be referred to pulmonology as above. (3) Hypersomnia: Code(s): G47.10 - Hypersomnia, unspecified Category: Medical Plan: Takes naps in the daytime after work. Plan Time spent on chart review, documentation, interview and assessment Orders: Referrals Pulmonary Medicine Referral G47.10 - Hypersomnia, unspecified, G47.33 - Obstructive sleep apnea (adult) (pediatric) Coding Level of Care Code Est Pt Level 4 (67214) Diagnoses HTN (hypertension) I10 Obstructive sleep apnea G47.33 Hypersomnia G47.10 CPT Codes EKG - CPT: 36894-[id number], Complete ([id number]) Time Spent (min) 30
== END 2023-08-06 14:24 | disposition home or self-care (01) ==
PROVIDERS: PCP Family Medicine; Visit Provider Nurse Practitioner Family
DX: I10 Essential (primary) hypertension (principal); G47.33 Obstructive sleep apnea (adult) (pediatric); G47.10 Hypersomnia, unspecified
CPT/HCPCS: 93010; 99214

== ENCOUNTER → 2023-08-06 13:33 | Outpatient (BNVA) | payer MEDICAID, SELFPAY | PROVIDERS: PCP Family Medicine; Visit Provider Nurse Practitioner Family | DX: I10 Essential (primary) hypertension (principal); G47.33 Obstructive sleep apnea (adult) (pediatric); G47.10 Hypersomnia, unspecified; Z79.899 Other long term (current) drug therapy | CPT/HCPCS: 93005; 99212 ==

== ENCOUNTER 2023-08-31 15:28 | Outpatient (AMB) | payer MEDICAID, SELFPAY ==
[2023-08-31 15:34] VITALS: BP 124/80; PULSE 80; O2SAT 97; BMI 39.6
--- NOTE | 2023-08-31 15:34 | MHC.OFFVIS ---
Vital Signs 08/31/23 15:34 Height 6 ft 2 in Weight 308 lb 10.354 oz BMI 39.6 BP 124/80 Blood Pressure Location Lt brachial Position Sitting Pulse 80 Pulse Source Pulse Oximeter Pulse Oximetry (%) 97 Oxygen Delivery Method Room Air Intake Visit Reasons: geovanny Intake Note: pt is here as a new patient for GEOVANNY and states he has never had a cpap in the past. daytime somnolence, snoring, witnessed apneas Investigation Division Lieutenant Required: Yes Investigation Division Lieutenant Name: Sanam Allergies No Known Allergies Allergy (Verified 08/31/23 15:52) Medication List - Last Reconciled 08/31/23 by Keegan Delarosa MD acetaminophen (Tylenol Extra Strength) 500 mg PO Q6H PRN acetaminophen-codeine 300-30 mg 1 tab PO Q8H PRN amlodipine 5 mg PO DAILY cyclobenzaprine 10 mg PO Q8H losartan-hydrochlorothiazide 100-25 mg 1 tab PO DAILY 30 days Do you need a note to return to daycare/school/sports/work: No HPI HPI geovanny: Details: 48 years old very pleasant gentleman, is Chinese-speaking. 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 He works at [employer] , and quite frequently feels like dozing off while doing his work. He has history of snoring at night since his childhood, it is somewhat worse now in the past few years. He does wake up with gasping like feeling , at night. He does have daytime sleepiness. When at home and if he starts reading newspaper or watch TV he will definitely fall asleep. In the afternoons after lunch he would feel very sleepy. On waking up in the morning he is still tired. He is grossly obese and lately because he is not able to do much exercise he has put on more weight. He is being treated for hypertension and is referred to see me by the cardiology team, in respect to his sleep apnea. He did have sleep study in November 2020 which was positive for moderately severe obstructive sleep apnea. However there was no follow-up for the treatment. [facility] Medical History (Updated 08/31/23 @ 16:02 by Keegan Delarosa MD) Obesity (BMI 30-39.9) Uncontrolled hypertension HTN (hypertension) Surgical History Hx of hand surgery Family History Father HTN (hypertension) Mother HTN (hypertension) Social History Patient Tobacco Use Status: Never used Tobacco Review of Systems Const All systems reviewed & are unremarkable except as noted in HPI and below Reports snoring Eyes Reports no additional complaints ENT Reports no additional complaints Card Denies chest pain, Denies irregular heart rhythm and Denies leg edema Resp Reports snoring GI Reports no additional complaints Reports no additional complaints Musc Reports no additional complaints Skin/Breast Reports system reviewed and no additional complaints, except as documented Neuro Reports no additional complaints Psych Reports no additional complaints Physical Exam Vital Signs: Last Vital Signs Pulse 80 08/31/23 15:34 BP 124/80 08/31/23 15:34 Pulse Ox 97 08/31/23 15:34 Oxygen Delivery Method Room Air 08/31/23 15:34 BMI result Body Mass Index 39.6 Const General: healthy appearing (Except for being overweight), comfortable, no acute distress, alert and awake Orientation/consciousness: patient oriented x3 HEENT Head: Yes normal to inspection General nose exam: No nasal polyps present and No nasal discharge present Face and sinus: Yes sinuses nontender Mouth: oropharynx abnormals (Narrow and crowded, Mallampati class 3) Throat: Yes posterior oropharynx normal Eyes General: appearance normal, both eyes and all related structures Neck Neck: Yes normal visual inspection, Yes no lymphadenopathy, Yes trachea midline, Yes no JVD and Yes other (Neck circumference 19 in) Thyroid: Thyroid normal Chest Chest palpation & inspection: normal inspection of the chest, normal palpation of entire chest wall and no tenderness Resp Effort & Inspection: normal respiratory effort Auscultation: clear to auscultation bilaterally, no crackles, no rhonchi and no wheezes Cardio Palpation: normal PMI Rate: regular rate Rhythm: regular rhythm Heart sounds: no gallops and no murmurs Peripheral pulses: Peripheral pulses 2+ throughout GI Palpation (GI): Soft to palpation, nontender, No hepatosplenomegaly present and no masses Auscultation: normal bowel sounds Back/Spine/Pelvis Thoracic/Lumbar Spine: thoracic and lumbar spine normal to inspection Skin General skin exam: no rashes or lesions noted Neuro General: patient oriented x3 and no focal motor deficits Cranial nerves: Yes CN's II-XII intact bilaterally Extrem General: Yes normal to inspection, Yes no clubbing, cyanosis or edema and Yes no calf tenderness Psych Speech and movement: Normal speech and movement present Results Reviewed Results Reviewed: Home-based sleep study on 11/21/2020. Total sleep time AHI 21.6, predominantly in supine position. Snoring for 29% of the sleep time and also had minimal nocturnal hypoxemia Assessment & Plan Assessment & Plan (1) Obesity (BMI 30-39.9): Comment: Patient is grossly obese. He has been overweight over the past many years but there has been much weight gain in the last 2-3 years. Code(s): E66.9 - Obesity, unspecified Category: Medical Plan: Discussed about the weight and he DC to join a weight management program to lose weight. (2) Obstructive sleep apnea: Comment: Patient is known to have obstructive sleep apnea since 2020 and maybe even longer. He was not followed after his sleep study in 2020 Code(s): G47.33 - Obstructive sleep apnea (adult) (pediatric) Category: Medical Plan: Because of more than 3 years gap after his last study, he needs a new sleep study . I would order a home-based sleep study. And after that he would definitely need to be started on CPAP therapy. (3) Hypersomnia: Comment: Patient has significant daytime sleepiness, which is due to un-treated sleep apnea Code(s): G47.10 - Hypersomnia, unspecified Category: Medical Plan: After the current sleep study we will make arrangement to start him on the CPAP Orders: Orders RT home sleep study Today E66.9 - Obesity, unspecified, G47.10 - Hypersomnia, unspecified, G47.33 - Obstructive sleep apnea (adult) (pediatric) Coding Level of Care Code New Pt Level 4 (67524) Diagnoses Obesity (BMI 30-39.9) E66.9 Obstructive sleep apnea G47.33 Hypersomnia G47.10
== END 2023-08-31 15:54 | disposition home or self-care (01) ==
PROVIDERS: PCP Family Medicine; Referring Provider Family Medicine; Visit Provider Internal Medicine
DX: G47.33 Obstructive sleep apnea (adult) (pediatric) (principal); G47.10 Hypersomnia, unspecified; E66.9 Obesity, unspecified; Z68.39 Body mass index [BMI] 39.0-39.9, adult
CPT/HCPCS: 99214

== ENCOUNTER → 2023-08-31 15:28 | Outpatient (BNVA) | payer MEDICAID, SELFPAY | PROVIDERS: PCP Family Medicine; Visit Provider Internal Medicine | DX: G47.33 Obstructive sleep apnea (adult) (pediatric) (principal); G47.10 Hypersomnia, unspecified; E66.9 Obesity, unspecified; Z68.39 Body mass index [BMI] 39.0-39.9, adult | CPT/HCPCS: 99212 ==

== ENCOUNTER → 2023-10-25 16:15 | Outpatient (BNVA) | payer MEDICAID, SELFPAY | PROVIDERS: PCP Family Medicine; Visit Provider Internal Medicine | DX: G47.33 Obstructive sleep apnea (adult) (pediatric) (principal); G47.10 Hypersomnia, unspecified; E66.9 Obesity, unspecified; Z68.39 Body mass index [BMI] 39.0-39.9, adult | CPT/HCPCS: 99212 ==

== ENCOUNTER 2023-10-25 16:16 | Outpatient (AMB) | payer MEDICAID, SELFPAY ==
--- NOTE | 2023-10-25 16:15 | MHC.OFFVIS ---
Vital Signs 10/25/23 16:16 Height 6 ft 2 in Weight 309 lb 11.991 oz BMI 39.8 BP 140/98 H Blood Pressure Location Rt brachial Position Sitting Pulse 81 Pulse Source Pulse Oximeter Pulse Oximetry (%) 97 Oxygen Delivery Method Room Air Intake Visit Reasons: geovanny Ophthalmic Asst Required: Yes Ophthalmic Asst Language: Vacuum Repairer Name: [id number] Elyssa Allergies No Known Allergies Allergy (Verified 10/25/23 16:26) Medication List - Last Reconciled 10/25/23 by Keegan Delarosa MD acetaminophen (Tylenol Extra Strength) 500 mg PO Q6H PRN acetaminophen-codeine 300-30 mg 1 tab PO Q8H PRN albuterol sulfate 90 mcg/actuation (Ventolin HFA) 2 puffs inhalation Q6H PRN amlodipine 5 mg PO DAILY cyclobenzaprine 10 mg PO Q8H losartan-hydrochlorothiazide 100-25 mg 1 tab PO DAILY 90 days Do you need a note to return to daycare/school/sports/work: No HPI HPI geovanny: Details: This 48 years old gentleman, Telugu-speaking, comes back today for follow-up. He is still having problem of getting good sleep at night. And remains tired and somewhat sleepy during the daytime. He thought he was coming to have these equipment for home-based sleep study today. But actually he has not had any sleep study, there is some confusion and may be some miscommunication. PENDING SALE TO [facility] Medical History Obesity (BMI 30-39.9) Uncontrolled hypertension HTN (hypertension) Surgical History Hx of hand surgery Family History Father HTN (hypertension) Mother HTN (hypertension) Social History Patient Tobacco Use Status: Never used Tobacco Review of Systems Const All systems reviewed & are unremarkable except as noted in HPI and below Reports snoring Eyes Reports no additional complaints ENT Reports no additional complaints Card Denies chest pain, Denies irregular heart rhythm and Denies leg edema Resp Reports snoring GI Reports no additional complaints Reports no additional complaints Musc Reports no additional complaints Skin/Breast Reports system reviewed and no additional complaints, except as documented Neuro Reports no additional complaints Psych Reports no additional complaints Physical Exam Vital Signs: Last Vital Signs Pulse 81 10/25/23 16:16 BP 140/98 H 10/25/23 16:16 Pulse Ox 97 10/25/23 16:16 Oxygen Delivery Method Room Air 10/25/23 16:16 BMI result Body Mass Index 39.8 Const General: healthy appearing (Except for being overweight), comfortable, no acute distress, alert and awake Orientation/consciousness: patient oriented x3 HEENT Head: Yes normal to inspection General nose exam: No nasal polyps present and No nasal discharge present Face and sinus: Yes sinuses nontender Mouth: oropharynx abnormals (Narrow and crowded, Mallampati class 3) Throat: Yes posterior oropharynx normal Eyes General: appearance normal, both eyes and all related structures Neck Neck: Yes normal visual inspection, Yes no lymphadenopathy, Yes trachea midline, Yes no JVD and Yes other (Neck circumference 19 in) Thyroid: Thyroid normal Chest Chest palpation & inspection: normal inspection of the chest, normal palpation of entire chest wall and no tenderness Resp Effort & Inspection: normal respiratory effort Auscultation: clear to auscultation bilaterally, no crackles, no rhonchi and no wheezes Cardio Palpation: normal PMI Rate: regular rate Rhythm: regular rhythm Heart sounds: no gallops and no murmurs Peripheral pulses: Peripheral pulses 2+ throughout GI Palpation (GI): Soft to palpation, nontender, No hepatosplenomegaly present and no masses Auscultation: normal bowel sounds Back/Spine/Pelvis Thoracic/Lumbar Spine: thoracic and lumbar spine normal to inspection Skin General skin exam: no rashes or lesions noted Neuro General: patient oriented x3 and no focal motor deficits Cranial nerves: Yes CN's II-XII intact bilaterally Extrem General: Yes normal to inspection, Yes no clubbing, cyanosis or edema and Yes no calf tenderness Psych Speech and movement: Normal speech and movement present Results Reviewed Results Reviewed: Home-based sleep study not performed yet so we have no results Assessment & Plan Assessment & Plan (1) Obesity (BMI 30-39.9): Comment: Patient is grossly obese. He has been overweight over the past many years but there has been much weight gain in the last 2-3 years. Code(s): E66.9 - Obesity, unspecified Category: Medical Plan: Have talked to him about his being overweight. There is a language Problem. He needs to be referred to a dietitian.. (2) Obstructive sleep apnea: Comment: Patient is known to have obstructive sleep apnea since 2020 and maybe even longer. He was not followed after his sleep study in 2020 Code(s): G47.33 - Obstructive sleep apnea (adult) (pediatric) Category: Medical Plan: He needs to have another home-based sleep study, to get new CPAP device. (3) Hypersomnia: Comment: Patient has significant daytime sleepiness, which is due to un-treated sleep apnea Code(s): G47.10 - Hypersomnia, unspecified Category: Medical Plan: Will expedite, getting home-based sleep study, and then provide him new CPAP device. Plan * I CHECKED WITH SLEEP LAB. THIS GENTLEMAN WAS CALLED A FEW TIMES AND VICK MESSAGE LEFT, FOR HIM TO COME AND MEDICAL CARE ADMINISTRATOR THE SLEEP STUDY DEVICE, BUT HE NEVER RETURNED THE CALL BACK. SEEMS TO BE A COMMUNICATION PROBLEM. I REQUESTED THE SLEEP LAB TO SCHEDULE HIM, AT AN EARLIER STAGE, AND LET MY OFFICE KNOW ABOUT THE DATE WHEN HE SHOULD COME AND MEDICAL CARE ADMINISTRATOR HIS EQUIPMENT. Coding Level of Care Code Est Pt Level 3 (46786) Diagnoses Obesity (BMI 30-39.9) E66.9 Obstructive sleep apnea G47.33 Hypersomnia G47.10
[2023-10-25 16:16] VITALS: BP 140/98; PULSE 81; O2SAT 97; BMI 39.8
== END 2023-10-25 16:34 | disposition home or self-care (01) ==
PROVIDERS: PCP Family Medicine; Visit Provider Internal Medicine
DX: E66.9 Obesity, unspecified (principal); G47.33 Obstructive sleep apnea (adult) (pediatric); G47.10 Hypersomnia, unspecified
CPT/HCPCS: 99213

== ENCOUNTER → 2023-10-28 14:37 | Outpatient (REF) | payer MEDICAID, SELFPAY | LOC: HO.SL 14:37 | PROVIDERS: PCP Family Medicine; Visit Provider Internal Medicine | DX: G47.33 Obstructive sleep apnea (adult) (pediatric) (principal); G47.10 Hypersomnia, unspecified; E66.9 Obesity, unspecified | CPT/HCPCS: 95806 ==

== ENCOUNTER → 2023-10-28 14:48 | Outpatient (BNV) | payer MEDICAID, SELFPAY | PROVIDERS: PCP Family Medicine; Visit Provider Internal Medicine | DX: G47.33 Obstructive sleep apnea (adult) (pediatric) (principal) | CPT/HCPCS: 95806 ==

== ENCOUNTER 2023-11-10 14:39 | Outpatient (AMB) | payer MEDICAID, SELFPAY ==
[2023-11-10 14:50] VITALS: BP 120/82; PULSE 75; O2SAT 96; BMI 39.5
--- NOTE | 2023-11-10 14:50 | MHC.OFFVIS ---
Vital Signs 11/10/23 14:50 Height 6 ft 2 in Weight 307 lb 8.717 oz BMI 39.5 BP 120/82 Blood Pressure Location Lt brachial Position Sitting Pulse 75 Pulse Source Pulse Oximeter Pulse Oximetry (%) 96 Oxygen Delivery Method Room Air Intake Visit Reasons: sleep apnea Intake Note: pt is here to talk about sleep study results, he feels tired today, just got out of work. 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 Name: Rhea Allergies No Known Allergies Allergy (Verified 11/10/23 15:01) Medication List - Last Reconciled 11/10/23 by Keegan Delarosa MD acetaminophen (Tylenol Extra Strength) 500 mg PO Q6H PRN acetaminophen-codeine 300-30 mg 1 tab PO Q8H PRN albuterol sulfate 90 mcg/actuation (Ventolin HFA) 2 puffs inhalation Q6H PRN amlodipine 5 mg PO DAILY cyclobenzaprine 10 mg PO Q8H losartan-hydrochlorothiazide 100-25 mg 1 tab PO DAILY 90 days Do you need a note to return to daycare/school/sports/work: No HPI HPI sleep apnea: Details: THIS [age] YEARS OLD GENTLEMAN WITH MORBID OBESITY, IS HERE AFTER HAVING THE HOME-BASED SLEEP STUDY. HE CONTINUE NEWS TO HAVE SNORING AT NIGHT WITH FRAGMENTED SLEEP AND EXCESSIVE DAYTIME SLEEPINESS. SLEEP STUDY WAS GROSSLY ABNORMAL WITH NOCTURNAL HYPOXEMIA, AND HE WILL BE SCHEDULED FOR CPAP TITRATION STUDY. [facility] Medical History Nocturnal hypoxemia Obesity (BMI 30-39.9) Uncontrolled hypertension HTN (hypertension) Surgical History Hx of hand surgery Family History Father HTN (hypertension) Mother HTN (hypertension) Social History Patient Tobacco Use Status: Never used Tobacco Review of Systems Const All systems reviewed & are unremarkable except as noted in HPI and below Reports snoring Eyes Reports no additional complaints ENT Reports no additional complaints Card Denies chest pain, Denies irregular heart rhythm and Denies leg edema Resp Reports snoring GI Reports no additional complaints Reports no additional complaints Musc Reports no additional complaints Skin/Breast Reports system reviewed and no additional complaints, except as documented Neuro Reports no additional complaints Psych Reports no additional complaints Physical Exam Vital Signs: Last Vital Signs Pulse 75 11/10/23 14:50 BP 120/82 11/10/23 14:50 Pulse Ox 96 11/10/23 14:50 Oxygen Delivery Method Room Air 11/10/23 14:50 BMI result Body Mass Index 39.5 Const General: healthy appearing (Except for being overweight), comfortable, no acute distress, alert and awake Orientation/consciousness: patient oriented x3 HEENT Head: Yes normal to inspection General nose exam: No nasal polyps present and No nasal discharge present Face and sinus: Yes sinuses nontender Mouth: oropharynx abnormals (Narrow and crowded, Mallampati class 3) Throat: Yes posterior oropharynx normal Eyes General: appearance normal, both eyes and all related structures Neck Neck: Yes normal visual inspection, Yes no lymphadenopathy, Yes trachea midline, Yes no JVD and Yes other (Neck circumference 19 in) Thyroid: Thyroid normal Chest Chest palpation & inspection: normal inspection of the chest, normal palpation of entire chest wall and no tenderness Resp Effort & Inspection: normal respiratory effort Auscultation: clear to auscultation bilaterally, no crackles, no rhonchi and no wheezes Cardio Palpation: normal PMI Rate: regular rate Rhythm: regular rhythm Heart sounds: no gallops and no murmurs Peripheral pulses: Peripheral pulses 2+ throughout GI Palpation (GI): Soft to palpation, nontender, No hepatosplenomegaly present and no masses Auscultation: normal bowel sounds Back/Spine/Pelvis Thoracic/Lumbar Spine: thoracic and lumbar spine normal to inspection Skin General skin exam: no rashes or lesions noted Neuro General: patient oriented x3 and no focal motor deficits Cranial nerves: Yes CN's II-XII intact bilaterally Extrem General: Yes normal to inspection, Yes no clubbing, cyanosis or edema and Yes no calf tenderness Psych Speech and movement: Normal speech and movement present Results Reviewed Results Reviewed: POLYSOMNOGRAM STUDY ON 11/02 SHOWS TOTAL SLEEP TIME AHI 51, AND AVERAGE O2 SAT DURING THE WHOLE NIGHT 89%. Assessment & Plan Assessment & Plan (1) Obesity (BMI 30-39.9): Comment: Patient is grossly obese. He has been overweight over the past many years but there has been much weight gain in the last 2-3 years. Code(s): E66.9 - Obesity, unspecified Category: Medical Plan: AGAIN TALKED TO HIM ABOUT HIS GROSS OBESITY AND HE IS ALREADY STARTING TO WALK EVERY DAY AND HE HAS REDUCED CALORIES INTAKE . (2) Obstructive sleep apnea: Comment: Patient is known to have obstructive sleep apnea since 2020 and maybe even longer. He was not followed after his sleep study in 2020 Home-based sleep study confirms that he has very severe obstructive sleep apnea. Code(s): G47.33 - Obstructive sleep apnea (adult) (pediatric) Category: Medical Plan: Because of persistent nocturnal hypoxemia during the whole night he is scheduled to have polysomnogram study for CPAP titration in the sleep lab. In addition to the CPAP or BiPAP he may also need O2 supplementation . (3) Nocturnal hypoxemia: Comment: His home-based sleep study did show that he has nocturnal hypoxemia. Average O2 sat during the whole night was 89%. This reflects sleep-related hypoventilation, Code(s): G47.34 - Idiopathic sleep related nonobstructive alveolar hypoventilation Category: Medical Plan: CPAP titration is scheduled to be done on Treatment would be planned after that. Coding Level of Care Code Est Pt Level 3 (34733) Diagnoses Obesity (BMI 30-39.9) E66.9 Obstructive sleep apnea G47.33 Nocturnal hypoxemia G47.34
== END 2023-11-10 15:12 | disposition home or self-care (01) ==
PROVIDERS: PCP Family Medicine; Referring Provider Family Medicine; Visit Provider Internal Medicine
DX: E66.9 Obesity, unspecified (principal); G47.33 Obstructive sleep apnea (adult) (pediatric); G47.34 Idiopathic sleep related nonobstructive alveolar hypoventilation
CPT/HCPCS: 99213

== ENCOUNTER → 2023-11-10 14:39 | Outpatient (BNVA) | payer MEDICAID, SELFPAY | PROVIDERS: PCP Family Medicine; Visit Provider Internal Medicine | DX: G47.33 Obstructive sleep apnea (adult) (pediatric) (principal); G47.34 Idiopathic sleep related nonobstructive alveolar hypoventilation; E66.9 Obesity, unspecified; Z68.39 Body mass index [BMI] 39.0-39.9, adult | CPT/HCPCS: 99212 ==

== ENCOUNTER → 2023-11-15 20:30 | Outpatient (REF) | payer MEDICAID, SELFPAY | LOC: HO.SL 20:30 | PROVIDERS: PCP Family Medicine; Visit Provider Internal Medicine | DX: G47.33 Obstructive sleep apnea (adult) (pediatric) (principal); G47.34 Idiopathic sleep related nonobstructive alveolar hypoventilation; G47.10 Hypersomnia, unspecified | CPT/HCPCS: 95811 ==

== ENCOUNTER → 2023-11-15 22:42 | Outpatient (BNV) | payer MEDICAID, SELFPAY | PROVIDERS: PCP Family Medicine; Visit Provider Internal Medicine | DX: G47.33 Obstructive sleep apnea (adult) (pediatric) (principal) | CPT/HCPCS: 95811 ==

== ENCOUNTER 2024-02-07 15:58 | Outpatient (AMB) | payer MEDICAID, SELFPAY ==
[2024-02-07 16:04] VITALS: BP 130/82; PULSE 86; O2SAT 98; BMI 40.2
--- NOTE | 2024-02-07 16:04 | A.OFFVIS_ITS ---
Vital Signs 02/07/24 16:04 Height 6 ft 2 in Weight 313 lb 0.902 oz BMI 40.2 BP 130/82 Blood Pressure Location Lt brachial Position Sitting Pulse 86 Pulse Source Pulse Oximeter Pulse Oximetry (%) 98 Oxygen Delivery Method Room Air Intake Visit Reasons: Obstructive sleep apnea Intake Note: pt is here after starting of cpap, and states he is trying to use if, he started on 12/15/23. He is having air leaks on sides of mask. pt is stating that he is getting short of breath at times, he has an inhaler that he doesn't seem to be helping. Orthodontist Vice President Required: Yes Orthodontist Vice President Services: Orthodontist Vice President Present Orthodontist Vice President Name: Maya Allergies No Known Allergies Allergy (Verified 02/07/24 16:09) Medication List - Last Reconciled 02/07/24 by Keegan Delarosa MD acetaminophen (Tylenol Extra Strength) 500 mg PO Q6H PRN acetaminophen-codeine 300-30 mg 1 tab PO Q8H PRN albuterol sulfate 90 mcg/actuation (Ventolin HFA) 2 puffs inhalation Q6H PRN amlodipine 5 mg PO DAILY cyclobenzaprine 10 mg PO Q8H losartan-hydrochlorothiazide 100-25 mg 1 tab PO DAILY 90 days Do you need a note to return to daycare/school/sports/work: No HPI HPI Obstructive sleep apnea: Details: THIS 48 YEARS OLD GENTLEMAN WITH MORBID OBESITY AND SEVERE OBSTRUCTIVE SLEEP APNEA GOT HIS CPAP DEVICE ONLY ABOUT A MONTH AGO AND IS USING IT, WITH SOME PROBLEMS. HE HAS NOT BEEN USING EVERY NIGHT, AND MOST OF THE NIGHT STILL USING ABOUT 2 HOURS OR SO. HE HAS SOME ISSUES WITH THE FULLFACE MASK DUE TO AIR LEAK. HE IS ALSO COMPLAINING OF MORE SHORTNESS OF BREATH EVEN WHEN HE USES THE ALBU TEROL INHALER, IS NOT HELPING. HE DENIES ANY WHEEZING OR COUGH ATTACKS. HE CLAIMS TO BE NONSMOKER. HE HAS PUT ON SOME EXTRA WEIGHT. [facility] Medical History (Updated 02/07/24 @ 16:31 by Keegan Delarosa MD) Dyspnea on exertion Nocturnal hypoxemia Obesity (BMI 30-39.9) Uncontrolled hypertension HTN (hypertension) Surgical History Hx of hand surgery Family History Father HTN (hypertension) Mother HTN (hypertension) Social History Patient Tobacco Use Status: Never used Tobacco Review of Systems Const All systems reviewed & are unremarkable except as noted in HPI and below Reports snoring Eyes Reports no additional complaints ENT Reports no additional complaints Card Denies chest pain, Denies irregular heart rhythm and Denies leg edema Resp Reports snoring GI Reports no additional complaints Reports no additional complaints Musc Reports no additional complaints Skin/Breast Reports system reviewed and no additional complaints, except as documented Neuro Reports no additional complaints Psych Reports no additional complaints Physical Exam Const General: healthy appearing (Except for being overweight), comfortable, no acute distress, alert and awake Orientation/consciousness: patient oriented x3 HEENT Head: Yes normal to inspection General nose exam: No nasal polyps present and No nasal discharge present Face and sinus: Yes sinuses nontender Mouth: oropharynx abnormals (Narrow and crowded, Mallampati class 3) Throat: Yes posterior oropharynx normal Eyes General: appearance normal, both eyes and all related structures Neck Neck: Yes normal visual inspection, Yes no lymphadenopathy, Yes trachea midline, Yes no JVD and Yes other (Neck circumference 19 in) Thyroid: Thyroid normal Chest Chest palpation & inspection: normal inspection of the chest, normal palpation of entire chest wall and no tenderness Resp Effort & Inspection: normal respiratory effort Auscultation: clear to auscultation bilaterally, no crackles, no rhonchi and no wheezes Cardio Palpation: normal PMI Rate: regular rate Rhythm: regular rhythm Heart sounds: no gallops and no murmurs Peripheral pulses: Peripheral pulses 2+ throughout GI Palpation (GI): Soft to palpation, nontender, No hepatosplenomegaly present and no masses Auscultation: normal bowel sounds Back/Spine/Pelvis Thoracic/Lumbar Spine: thoracic and lumbar spine normal to inspection Skin General skin exam: no rashes or lesions noted Neuro General: patient oriented x3 and no focal motor deficits Cranial nerves: Yes CN's II-XII intact bilaterally Extrem General: Yes normal to inspection, Yes no clubbing, cyanosis or edema and Yes no calf tenderness Psych Speech and movement: Normal speech and movement present Results Reviewed Results Reviewed: COMPLIANCE REPORT. HE USED FOR 14/30 NIGHTS., 47% AVERAGE USE IT PER NIGHT WAS 2 HOURS 20 MINUTE. THERE WAS A MILD AIR LEAK. BUT ON THE NIGHTS THAT HE USE CPAP THERE WAS NO RESIDUAL AHI, ONLY 0.5 Assessment & Plan Assessment & Plan (1) Obesity (BMI 30-39.9): Comment: Patient is grossly obese. He has been overweight over the past many years but there has been much weight gain in the last 2-3 years. He has put on more weight during the past 1 month. Code(s): E66.9 - Obesity, unspecified Category: Medical Plan: Talked to him through the patient financial services specialist and encouraged him to cut down the intake of calories and walk daily to lose weight. He is also advised to look into joining a weight management program. (2) Obstructive sleep apnea: Comment: Patient is known to have obstructive sleep apnea since 2020 and maybe even longer. He was not followed after his sleep study in 2020 Home-based sleep study confirms that he has very severe obstructive sleep apnea. He did get new CPAP device, using with fullface mask, Still in a learning curve and having some issues with the use of mask. Code(s): G47.33 - Obstructive sleep apnea (adult) (pediatric) Category: Medical Plan: Educated about the use of CPAP device and the mask. He is also instructed to call the DME number for attending is CPAP Clinic, and learning more about using the CPAP. (3) Nocturnal hypoxemia: Comment: His home-based sleep study did show that he has nocturnal hypoxemia. Average O2 sat during the whole night was 89%. This reflects sleep-related hypoventilation, and is expected to improve as he starts using the CPAP regularly Code(s): G47.34 - Idiopathic sleep related nonobstructive alveolar hypoventilation Category: Medical Plan: Continue to use CPAP regularly, at some point we will do overnight oximetry recording to make sure that hypoxemia is corrected. (4) Dyspnea on exertion: Comment: He is complaining of shortness of breath especially on walking. Say is use of albuterol inhaler is not helping. I think it is more dyspnea on exertion due to his gross obesity. He may have lot of restrictive component. Code(s): R06.09 - Other forms of dyspnea Category: Medical Plan: Pulmonary function test is being scheduled. To give him more instructions about this. Orders: Orders PFT pulmonary function test Today E66.9 - Obesity, unspecified, G47.34 - Idiopathic sleep related nonobstructive alveolar hypoventilation, R06.09 - Other forms of dyspnea Coding Level of Care Code Est Pt Level 3 (64085) Diagnoses Obesity (BMI 30-39.9) E66.9 Obstructive sleep apnea G47.33 Nocturnal hypoxemia G47.34 Dyspnea on exertion R06.09
== END 2024-02-07 16:20 | disposition home or self-care (01) ==
LOC: HO.HPS 15:59
PROVIDERS: PCP Family Medicine; Visit Provider Internal Medicine
DX: E66.9 Obesity, unspecified (principal); G47.33 Obstructive sleep apnea (adult) (pediatric); G47.34 Idiopathic sleep related nonobstructive alveolar hypoventilation; R06.09 Other forms of dyspnea
CPT/HCPCS: 99213

== ENCOUNTER → 2024-02-07 15:58 | Outpatient (BNVA) | payer MEDICAID, SELFPAY | PROVIDERS: PCP Family Medicine; Visit Provider Internal Medicine | DX: G47.33 Obstructive sleep apnea (adult) (pediatric) (principal); G47.34 Idiopathic sleep related nonobstructive alveolar hypoventilation; R06.09 Other forms of dyspnea; E66.01 Morbid (severe) obesity due to excess calories; Z68.41 Body mass index [BMI] 40.0-44.9, adult; Z99.89 Dependence on other enabling machines and devices | CPT/HCPCS: 99212 ==

== ENCOUNTER 2024-03-29 15:43 | Outpatient (AMB) | payer MEDICAID, SELFPAY ==
[2024-03-29 15:46] VITALS: BP 140/90; PULSE 80; O2SAT 97; BMI 40.2
--- NOTE | 2024-03-29 15:46 | A.OFFVIS_ITS ---
Vital Signs 03/29/24 15:46 Height 6 ft 2 in Weight 313 lb BMI 40.2 BP 140/90 H Blood Pressure Location Lt brachial Position Sitting Pulse 80 Pulse Source Pulse Oximeter Pulse Oximetry (%) 97 Oxygen Delivery Method Room Air Intake Visit Reasons: Obstructive sleep apnea Intake Note: pt is here for follow up of NICHOLAS, pt states he has a sore throat, machine is making his throat very dry at night and last night really bothered his throat Glass Furnace Operator Required: Yes Glass Furnace Operator Services: Glass Furnace Operator Present Glass Furnace Operator Name: [id number] Allergies No Known Allergies Allergy (Verified 03/29/24 16:04) Medication List - Last Reconciled 03/29/24 by Keegan Delarosa MD acetaminophen (Tylenol Extra Strength) 500 mg PO Q6H PRN acetaminophen-codeine 300-30 mg 1 tab PO Q8H PRN albuterol sulfate 90 mcg/actuation (Ventolin HFA) 2 puffs inhalation Q6H PRN amlodipine 5 mg PO DAILY cyclobenzaprine 10 mg PO Q8H losartan-hydrochlorothiazide 100-25 mg 1 tab PO DAILY 90 days Do you need a note to return to daycare/school/sports/work: No HPI HPI Obstructive sleep apnea: Details: THIS 48 YEARS OLD GENTLEMAN WITH MORBID OBESITY AND OBSTRUCTIVE SLEEP APNEA IS HERE FOR SHORT TERM FOLLOW-UP . HE HAS NOT BEEN USING THE CPAP REGULARLY. COMPLAINS OF DISCOMFORT IN THE THROAT WHEN HE PUTS ON THE CPAP MASK. WHEN TALKED ABOUT HUMIDIFICATION HE REALLY JUST DOES NOT UNDERSTAND, HOW TO USE. THE HUMIDIFICATION PROPERLY HIS SLEEP REMAINS FRAGMENTED. [facility] Medical History Dyspnea on exertion Nocturnal hypoxemia Obesity (BMI 30-39.9) Uncontrolled hypertension HTN (hypertension) Surgical History Hx of hand surgery Family History Father HTN (hypertension) Mother HTN (hypertension) Social History Patient Tobacco Use Status: Never used Tobacco Review of Systems Const All systems reviewed & are unremarkable except as noted in HPI and below Reports snoring Eyes Reports no additional complaints ENT Reports no additional complaints Card Denies chest pain, Denies irregular heart rhythm and Denies leg edema Resp Reports snoring GI Reports no additional complaints Reports no additional complaints Musc Reports no additional complaints Skin/Breast Reports system reviewed and no additional complaints, except as documented Neuro Reports no additional complaints Psych Reports no additional complaints Physical Exam Vital Signs: Last Vital Signs Pulse 80 03/29/24 15:46 BP 140/90 H 03/29/24 15:46 Pulse Ox 97 03/29/24 15:46 Oxygen Delivery Method Room Air 03/29/24 15:46 BMI result Body Mass Index 40.2 Const General: healthy appearing (Except for being overweight), comfortable, no acute distress, alert and awake Orientation/consciousness: patient oriented x3 HEENT Head: Yes normal to inspection General nose exam: No nasal polyps present and No nasal discharge present Face and sinus: Yes sinuses nontender Mouth: oropharynx abnormals (Narrow and crowded, Mallampati class 3. I DID NOT SEE ANY SIGN OF INFECTION) Throat: Yes posterior oropharynx normal Eyes General: appearance normal, both eyes and all related structures Neck Neck: Yes normal visual inspection, Yes no lymphadenopathy, Yes trachea midline, Yes no JVD and Yes other (Neck circumference 19 in) Thyroid: Thyroid normal Chest Chest palpation & inspection: normal inspection of the chest, normal palpation of entire chest wall and no tenderness Resp Effort & Inspection: normal respiratory effort Auscultation: clear to auscultation bilaterally, no crackles, no rhonchi and no wheezes Cardio Palpation: normal PMI Rate: regular rate Rhythm: regular rhythm Heart sounds: no gallops and no murmurs Peripheral pulses: Peripheral pulses 2+ throughout GI Palpation (GI): Soft to palpation, nontender, No hepatosplenomegaly present and no masses Auscultation: normal bowel sounds Back/Spine/Pelvis Thoracic/Lumbar Spine: thoracic and lumbar spine normal to inspection Skin General skin exam: no rashes or lesions noted Neuro General: patient oriented x3 and no focal motor deficits Cranial nerves: Yes CN's II-XII intact bilaterally Extrem General: Yes normal to inspection, Yes no clubbing, cyanosis or edema and Yes no calf tenderness Psych Speech and movement: Normal speech and movement present Results Reviewed Results Reviewed: COMPLIANCE REPORT IS REVIEWED AND IT SHOWS THAT HE HAS USED ONLY ON 12 NIGHTS OUT OF 30 NIGHTS, 40%. AVERAGE USE IT PER NIGHT IS ONLY 2 HOURS 31 MINUTES. THERE IS MODERATE DEGREE OF AIR LEAK. RESIDUAL AHI IS ONLY 0.8 Assessment & Plan Assessment & Plan (1) Obesity (BMI 30-39.9): Comment: Patient is grossly obese. He has been overweight over the past many years but there has been much weight gain in the last 2-3 years. He has put on more weight recently . Code(s): E66.9 - Obesity, unspecified Category: Medical Plan: I talked to him about weight reduction. He has hard time to understand. Does not want to join a weight management program. I did stress that it is very important for him to start losing weight. (2) Obstructive sleep apnea: Comment: Patient is known to have obstructive sleep apnea since 2020 and maybe even longer. He was not followed after his sleep study in 2020 Home-based sleep study confirms that he has very severe obstructive sleep apnea. He did get new CPAP device, using with fullface mask, Still in a learning curve and having some issues with the use of mask. Compliance remains suboptimal. Code(s): G47.33 - Obstructive sleep apnea (adult) (pediatric) Category: Medical Plan: Headache detailed talk with him through the contact centre supervisor. I told him that it is a must that he should use CPAP every night at least for 4 hours per night. He should use the humidification properly. He does not seem to understand about the proper usage. I have offered him to come with his CPAP machine here to the office and we will try to show him how to use it properly. (3) Nocturnal hypoxemia: Comment: His home-based sleep study did show that he has nocturnal hypoxemia. Average O2 sat during the whole night was 89%. This reflects sleep-related hypoventilation, and is expected to improve as he starts using the CPAP regularly Code(s): G47.34 - Idiopathic sleep related nonobstructive alveolar hypoventilation Category: Medical Plan: Waiting to have him start using the CPAP properly and regularly, Then will do overnight oximetry recording and if he is still hypoxemic he will need O2 supplementation. A by next visit his compliance is not improved then I think we should bring him in the sleep lab for proper titration. Coding Level of Care Code Est Pt Level 3 (25119) Diagnoses Obesity (BMI 30-39.9) E66.9 Obstructive sleep apnea G47.33 Nocturnal hypoxemia G47.34
== END 2024-03-29 16:04 | disposition home or self-care (01) ==
PROVIDERS: PCP Family Medicine; Visit Provider Internal Medicine
DX: E66.9 Obesity, unspecified (principal); G47.33 Obstructive sleep apnea (adult) (pediatric); G47.34 Idiopathic sleep related nonobstructive alveolar hypoventilation
CPT/HCPCS: 99213

== ENCOUNTER → 2024-03-29 15:43 | Outpatient (BNVA) | payer MEDICAID, SELFPAY | PROVIDERS: PCP Family Medicine; Visit Provider Internal Medicine | DX: G47.33 Obstructive sleep apnea (adult) (pediatric) (principal); G47.34 Idiopathic sleep related nonobstructive alveolar hypoventilation; E66.9 Obesity, unspecified; Z68.41 Body mass index [BMI] 40.0-44.9, adult | CPT/HCPCS: 99212 ==

== ENCOUNTER 2024-08-03 14:37 | Outpatient (AMB) | payer MEDICAID, SELFPAY ==
--- NOTE | 2024-08-03 14:46 | A.OFFVIS_ITS ---
Vital Signs 08/03/24 14:47 Height 6 ft 2 in Weight 304 lb 3.806 oz BMI 39.1 BP 132/82 Blood Pressure Location Lt brachial Position Sitting Pulse 72 Intake Visit Reasons: 1 year followup Intake Note: 1 year follow-up with ekg feeling good Supervisor Fabrication Department Required: Yes Supervisor Fabrication Department Services: Supervisor Fabrication Department Present Supervisor Fabrication Department Name: víctor Gonzalez Allergies No Known Allergies Allergy (Verified 03/29/24 16:04) Medication List - Last Reconciled 08/03/24 by Yvon Barbosa MD acetaminophen (Tylenol Extra Strength) 500 mg PO Q6H PRN acetaminophen-codeine 300-30 mg 1 tab PO Q8H PRN albuterol sulfate 90 mcg/actuation (Ventolin HFA) 2 puffs inhalation Q6H PRN amlodipine 5 mg PO DAILY cyclobenzaprine 10 mg PO Q8H losartan-hydrochlorothiazide 100-25 mg 1 tab PO DAILY 90 days HPI Comments Details: Jeffery comes for follow-up. History was obtained with help of scheduling analyst. Patient has no new cardiac symptoms. Taking current medications. Has been diagnose with severe sleep apnea but has not been able to use CPAP machine as he is not able to tolerate. He said he gets claustrophobic with his mask. Compliance has been poor. He has also not been able to exercise and is not been participate in significant weight loss program. Denies any heart failure symptoms. PENDING SALE TO [facility] Medical History Dyspnea on exertion Nocturnal hypoxemia Obesity (BMI 30-39.9) Uncontrolled hypertension HTN (hypertension) Surgical History Hx of hand surgery Family History Father HTN (hypertension) Mother HTN (hypertension) Social History Patient Tobacco Use Status: Never used Tobacco Review of Systems Const Denies chills, Denies fatigue, Denies fever(s), Denies frequent falls, Denies weakness, Denies weight gain and Denies weight loss ENT Denies dizziness Card Denies chest pain, Denies leg edema, Denies lightheadedness, Denies palpitations, Denies dyspnea, Denies dyspnea on exertion, Denies orthopnea and Denies other (loss of consciousness) Resp Denies cough, Denies dyspnea and Denies dyspnea on exertion GI Denies hematochezia and Denies change in stool character Musc Denies abnormal gait, Denies muscle weakness, Denies numbness, Denies radiating pain into limb and Denies tingling Neuro Denies abnormal gait, Denies dizziness, Denies frequent falls, Denies numbness, Denies tingling and Denies weakness Endo Denies fatigue and Denies palpitations Physical Exam Vital Signs: Last Vital Signs Pulse 72 08/03/24 14:47 BP 132/82 08/03/24 14:47 BMI result Body Mass Index 39.1 Const Other: obese General: cooperative, healthy appearing, comfortable and no acute distress Orientation/consciousness: patient oriented x3 Neck Neck: Yes normal visual inspection Resp Effort & Inspection: normal respiratory effort Auscultation: clear to auscultation bilaterally, no crackles, no rales, no rhonchi and no wheezes Cardio Jugular venous distension: no JVD Rate: regular rate Rhythm: regular rhythm Heart sounds: S1 normal heart sound present, S2 normal heart sound present, no murmurs and no rubs Neuro General: patient oriented x3 Extrem General: Yes normal to inspection and No no pedal edema Psych Appearance: grossly normal Mental Status: mental status grossly normal Speech and movement: Normal speech and movement present Assessment & Plan Assessment & Plan (1) HTN (hypertension): Code(s): I10 - Essential (primary) hypertension Category: Medical Plan: Hypertension which is currently well optimized on current therapy with amlodipine as well as losartan/hydrochlorothiazide combination. Continue the same. Low-salt diet was discussed importance of good control blood pressure was discussed. He was significant sleep apnea at this needs to be corrected and this was discussed with him. Continue alternative therapy such as inspire device. Have referred him back to his current sleep specialist. Importance of aggressive weight loss program was discussed. However he said he has not been because of his job as well as his lifestyle. Overall long-term implications of uncontrolled sleep apnea as well as uncontrolled obesity was discussed with him. He showed understanding. Consider therapy with GLP 1 antagonist Will follow up in the clinic if need be. Thank you for allowing me to partake in his care. Coding Level of Care Code Est Pt Level 3 (09027) Diagnoses HTN (hypertension) I10
[2024-08-03 14:47] VITALS: BP 132/82; PULSE 72; BMI 39.1
== END 2024-08-03 15:05 | disposition home or self-care (01) ==
LOC: HO.HCS 14:38
PROVIDERS: PCP Family Medicine; Visit Provider Internal Medicine Cardiovascular Disease
DX: I10 Essential (primary) hypertension (principal)
CPT/HCPCS: 99213

== ENCOUNTER → 2024-08-03 14:37 | Outpatient (BNVA) | payer MEDICAID, SELFPAY | PROVIDERS: PCP Family Medicine; Visit Provider Internal Medicine Cardiovascular Disease | DX: I10 Essential (primary) hypertension (principal) | CPT/HCPCS: 99212 ==